=== PATIENT | female | born 1985 | race Caucasian/White ===

== ENCOUNTER 2023-03-10 13:51 | Emergency (ER) | payer OTHER, SELFPAY ==
--- NOTE | ~2023-03-10 | XR_ITS ---
EXAMINATION: XR hand LT min 3V DATE: 03/10/2023 14:12 INDICATION: Pain and bruising at the palmar aspect of the left hand TECHNIQUE: Posteroanterior, oblique and lateral views of the left hand were obtained. COMPARISON: None. FINDINGS: Alignment is normal. No fracture. Joint spaces are normal. Soft tissues are unremarkable. IMPRESSION: 1. Negative left hand radiographs. Reviewed, dictated and finalized at location A. 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
[2023-03-10 13:58] VITALS: BP 114/74; PULSE 81; RESP 18; TEMP 37.2; O2SAT 99
--- NOTE | 2023-03-10 14:21 | ED.UPPEXIN ---
HPI - Extremity Injury (Upper) General Chief Complaint: Extremity Injury, Upper Stated Complaint: left hand injury Time Seen by Provider: 03/10/23 14:15 Source: patient Mode of arrival: ambulatory Limitations: no limitations History of Present Illness HPI narrative: 37 year old female who fell on the ice yesterday with her hands out behind her with bruising noted to the left hand pressley aspect. Patient reports pain to the palm area below thumb region with noted swelling and some ecchymosis, full mobility of left hand noted with discomfort. Patient reports that she has used ice and heat and elevated her left hand. MD complaint: injury to: left and hand Onset (ago): day(s) (1) Other Extremity Injury: Left: hand (pressley aspect) Place: outdoors Severity scale (1-10): 5 Treatments prior to arrival: cold therapy and other (heat and elevation) Related Data Home Medications Medication Instructions Recorded Confirmed No Home Medications 03/10/23 03/10/23 Allergies Allergy/AdvReac Type Severity Reaction Status Date / Time No Known Allergies Allergy Verified 03/10/23 13:59 Review of Systems Review of Systems: CONSTITUTIONAL: Denies fever, chills, or sweats. CARDIOVASCULAR: Denies chest pain, palpitations, or edema. RESPIRATORY: Denies cough or dyspnea. SKIN: Denies rash or itching. Denies lacerations or abrasions MUSCULOSKELETAL: Reports pain swelling to left palm area with ecchymosis from fall on ice yesterday. NEUROLOGIC: Denies numbness, or weakness. All systems reviewed & are unremarkable except as noted in HPI and below PMFSH Past Medical History Medical History (Updated 03/11/23 @ 11:15 by Winifred Henry NP) Hemochromatosis History of rectal polyps removed Surgical History Surgical History (Updated 03/11/23 @ 11:10 by Winifred Henry NP) H/O lumpectomy H/O: hysterectomy History of intestinal surgery Previous section Social History Social History (Updated 03/11/23 @ 11:12 by Winifred Henry NP) Smoking packs per day: 0.5 Smoking cigarettes per day: 10.0 Years smoked: 24 Smoking pack-years: 12.00 Smoking status: Current every day smoker Tobacco type: cigarettes Alcohol intake: current Alcohol use details: social Substance use type: does not use Living arrangements: with family Gender identity (if verbalized by the patient): Female Comments At time of signature, agree with nursing past medical, surgical, social and family history. There is no relevant family history pertinent to the presenting complaint Exam Narrative: GENERAL: Well-appearing, well-nourished, and in no acute distress. HEAD: Normocephalic, atraumatic. EYES: PERRLA, conjunctivae clear NECK: Supple. CHEST: Speaks in full sentences. No respiratory distress.SAO2 99% on room air HEART: Regular rate and rhythm. Normal and equal peripheral pulses. EXTREMITIES: Left hand has normal strength and sensation, normal range of motion with some discomfort,positive edema or ecchymosis left palm. 5/5 strength with flexion and extension. Normal sensation with sensitivity to light touch and pain. No point tenderness.? ?No open wounds, no skin tenting, no devitalized tissue or atrophy, no trophic changes, no obvious deformity, alignment normal, nearby joints and structures intact. Distal pulses palpable and equal bilaterally, skin warm, dry, pink. Capillary refill less than 3 seconds. Course Course Level of Care: Express Care Visit Vital Signs Vital signs: Vital Signs Temperature 37.2 C 03/10/23 13:58 Pulse Rate 81 03/10/23 13:58 Respiratory Rate 18 03/10/23 13:58 Blood Pressure 114/74 03/10/23 13:58 Pulse Oximetry 99 03/10/23 13:58 Oxygen Delivery Room Air 03/10/23 13:58 Temperature 37.2 C 03/10/23 13:58 Pulse Rate 81 03/10/23 13:58 Respiratory Rate 18 03/10/23 13:58 Blood Pressure 114/74 03/10/23 13:58 Pulse Oximetry 99 03/10/23 13:58 O
== END 2023-03-10 14:35 | disposition home or self-care (01) ==
PROVIDERS: Emergency Provider Registered Nurse; PCP Internal Medicine
DX: S60.222A Contusion of left hand, initial encounter (principal); W00.9XXA Unspecified fall due to ice and snow, initial encounter; F17.210 Nicotine dependence, cigarettes, uncomplicated
CPT/HCPCS: 73130; 99203; G0463